=== PATIENT | male | born 1995 | race Two or more races ===

== ENCOUNTER 2021-10-18 13:10 | Emergency (ER) | payer BC ==
[~2021-10-18] VITALS: Ht 180.3 cm; Wt 79.4 kg
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
[2021-10-18] MEDS ORDERED: NAPR-1192 PO (14:24)
[2021-10-18 15:05] VITALS: BP 131/75
--- NOTE | 2021-10-18 15:05 | NUR ---
Patient discharged to home in stable condition. Written and verbal after care instructions given. Patient verbalizes understanding of instruction.
== END 2021-10-18 15:05 | disposition home or self-care (01) ==
LOC: ER 13:16
DX: S52.122A Displaced fracture of head of left radius, initial encounter for closed fracture (principal); V89.9XXA Person injured in unspecified vehicle accident, initial encounter; Y93.89 Activity, other specified; Y92.89 Other specified places as the place of occurrence of the external cause; Y99.8 Other external cause status
CPT/HCPCS: 73030-TC; 73080-TC; 73110

== ENCOUNTER 2024-03-26 14:40 | Emergency (ER) | payer BC, OTHER ==
[~2024-03-26] VITALS: Ht 175.3 cm; Wt 77.1 kg
[~2024-03-26 14:40] MED LIST: NAPR-1192 PO
[2024-03-26] MEDS ORDERED: CYCLOBENZAPRINE 10 MG TABLET ONE (15:22)
[2024-03-26] MEDS ORDERED: IBUPROFEN 400 MG TABLET ONE (15:23)
[2024-03-26] MEDS: IBUPROFEN 400 MG TABLET PO ONE (15:25)
[2024-03-26] MEDS: CYCLOBENZAPRINE 10 MG TABLET PO ONE (15:25)
[2024-03-26] MEDS ORDERED: CYCL5TAB PO (15:45)
[2024-03-26 16:09] VITALS: BP 135/80; TEMP 98.1; O2SAT 99
== END 2024-03-26 16:09 | disposition home or self-care (01) ==
LOC: ER 14:43
DX: M54.50 Low back pain, unspecified (principal); M54.2 Cervicalgia; V43.52XA Car driver injured in collision with other type car in traffic accident, initial encounter; Y93.89 Activity, other specified; Y92.488 Other paved roadways as the place of occurrence of the external cause; Y99.8 Other external cause status